=== PATIENT | male | born 1965 | race Caucasian/White ===

== ENCOUNTER 2017-10-15 03:45 | Emergency (ER) | payer MEDICAID ==
[~2017-10-15] VITALS: Ht 188 cm; Wt 94.7 kg
[~2017-10-15 03:45] MED LIST: ACET-3068 PO; AZIT250T PO; CYCL-1 PO; DIAZ-351 PO; IBUP-1984 PO; LORA1TAB PO; ZIPR60CA5 PO
[2017-10-15 03:58] VITALS: BP 116/75
== END 2017-10-15 10:11 | disposition left against medical advice (07) ==
LOC: ER 03:46
DX: M54.9 Dorsalgia, unspecified (principal); Z53.21 Procedure and treatment not carried out due to patient leaving prior to being seen by health care provider

== ENCOUNTER 2017-11-02 19:55 | Emergency (ER) | payer MEDICAID ==
[~2017-11-02] VITALS: Ht 188 cm; Wt 95.0 kg
[2017-11-02 20:04] VITALS: BP 134/76
[2017-11-02] MEDS ORDERED: ketorolac tromethamine 15mg/ml inj. IM ONE (21:40)
[2017-11-02] MEDS ORDERED: CYCL-1 PO (21:42)
[2017-11-02] MEDS ORDERED: IBUP-1985 PO (21:42)
[2017-11-02] MEDS ORDERED: LIDO700A32 TOP (21:42)
== END 2017-11-02 22:00 | disposition home or self-care (01) ==
LOC: ER 19:56
DX: M54.5 Low back pain (principal); F17.200 Nicotine dependence, unspecified, uncomplicated; F12.10 Cannabis abuse, uncomplicated
CPT/HCPCS: 96372; 99283; J1885

== ENCOUNTER 2020-09-09 06:42 | Emergency (ER) | payer MEDICAID ==
[~2020-09-09] VITALS: Ht 188 cm; Wt 90.9 kg
[~2020-09-09 06:42] MED LIST changes: +IBUP-1985 PO; +LIDO700A32 TOP
[2020-09-09 06:45] VITALS: BP 139/85
[2020-09-09] MEDS ORDERED: ibuprofen tablet 400 MG TABLET PO ONE (07:00)
[2020-09-09] MEDS ORDERED: acetaminophen 325mg tablet PO ONE (07:00)
[2020-09-09] MEDS ORDERED: penicillin G benzathine 1.2 million unit/2ml syringe IM ONE (07:45)
== END 2020-09-09 08:30 | disposition home or self-care (01) ==
LOC: ER 06:43
DX: J02.0 Streptococcal pharyngitis (principal); B95.0 Streptococcus, group A, as the cause of diseases classified elsewhere; F41.9 Anxiety disorder, unspecified; F31.9 Bipolar disorder, unspecified; F12.90 Cannabis use, unspecified, uncomplicated; Z56.0 Unemployment, unspecified; Z79.899 Other long term (current) drug therapy
CPT/HCPCS: 87502; 87503; 87880; 96372; 99283; J0561

== ENCOUNTER 2021-12-18 15:06 | Emergency (ER) | payer MEDICAID ==
[~2021-12-18] VITALS: Ht 185.4 cm; Wt 95.5 kg
[2021-12-18 15:40] VITALS: BP 140/90
== END 2021-12-18 16:37 | disposition home or self-care (01) ==
LOC: ER 15:06
DX: F41.9 Anxiety disorder, unspecified (principal); I10 Essential (primary) hypertension; F12.90 Cannabis use, unspecified, uncomplicated; F31.9 Bipolar disorder, unspecified; F17.200 Nicotine dependence, unspecified, uncomplicated; Z56.0 Unemployment, unspecified; Z79.2 Long term (current) use of antibiotics; Z79.899 Other long term (current) drug therapy
CPT/HCPCS: 99283

== ENCOUNTER 2022-07-24 20:38 | Emergency (ER) | payer MEDICAID ==
[~2022-07-24] VITALS: Ht 188 cm; Wt 104.7 kg
[2022-07-24 20:43] VITALS: BP 168/100
[2022-07-24] MEDS ORDERED: CYCL-1 PO (21:40)
[2022-07-24] MEDS ORDERED: IBUP-1986 PO (21:40)
[2022-07-24] MEDS ORDERED: ketorolac trometh inj. 60 MG/2 ML VIAL IM ONE (21:45)
== END 2022-07-24 22:27 | disposition home or self-care (01) ==
LOC: ER 20:38
DX: S39.012A Strain of muscle, fascia and tendon of lower back, initial encounter (principal); G89.29 Other chronic pain; I10 Essential (primary) hypertension; F41.9 Anxiety disorder, unspecified; F31.9 Bipolar disorder, unspecified; F12.90 Cannabis use, unspecified, uncomplicated; Z56.0 Unemployment, unspecified; Z60.2 Problems related to living alone; Z79.899 Other long term (current) drug therapy; X58.XXXA Exposure to other specified factors, initial encounter; Y93.89 Activity, other specified; Y92.89 Other specified places as the place of occurrence of the external cause; Y99.8 Other external cause status
CPT/HCPCS: 96372; 99283; J1885

== ENCOUNTER 2023-06-23 15:53 | Emergency (ER) | payer MEDICAID ==
[~2023-06-23] VITALS: Ht 188 cm; Wt 101.2 kg
[~2023-06-23 15:53] MED LIST changes: +IBUP-1986 PO
[2023-06-23 16:00] VITALS: BP 135/88; PULSE 96; RESP 18; TEMP 98; O2SAT 98
[2023-06-23] MEDS ORDERED: CEFD300C3 PO (16:45)
== END 2023-06-23 17:31 | disposition home or self-care (01) ==
LOC: ER 15:53
DX: H66.002 Acute suppurative otitis media without spontaneous rupture of ear drum, left ear (principal); I10 Essential (primary) hypertension; G89.29 Other chronic pain; M54.9 Dorsalgia, unspecified; F31.9 Bipolar disorder, unspecified; F12.10 Cannabis abuse, uncomplicated; Z79.899 Other long term (current) drug therapy
CPT/HCPCS: 99283